=== PATIENT | male | born 1955 | race Caucasian/White ===

== ENCOUNTER 2025-10-31 06:56 | Day surgery (SDC) | payer MEDICARE, OTHER, SELFPAY ==
[2025-10-31 08:13] VITALS: BMI 26.5
== END 2025-10-31 10:45 | disposition home or self-care (01) ==
LOC: CATH 06:56
PROVIDERS: ATTENDING PHYSICIAN Internal Medicine Cardiovascular Disease; FAMILY PHYSICIAN Family Medicine; OTHER PHYSICIAN Internal Medicine Interventional Cardiology
DX: I08.3 Combined rheumatic disorders of mitral, aortic and tricuspid valves (principal); I08.8 Other rheumatic multiple valve diseases; E78.5 Hyperlipidemia, unspecified
CPT/HCPCS: 93312; 93320; 93325

== ENCOUNTER 2025-11-05 11:12 | Day surgery (SDC) | payer MEDICARE, OTHER, SELFPAY ==
[2025-11-05] VITALS (9 sets, daily range): BP systolic 108–136; BP diastolic 55–67; BMI 26.8
[2025-11-05 11:59] LABS: Hematocrit 42.2 % (39.0-52.0); Hemoglobin 14.4 g/dL (13.0-18.0); Mean Corp Hgb Conc. 34.1 g/dL (33.0-37.0); Mean Corpuscular Volume 96.6 fL (80.0-94.0); Platelet Count 168 10^3/uL (130-400); Red Cell Dist. Width 11.9 % (11.5-14.5)
[2025-11-05] MEDS: ASPIRIN 325 MG PO (12:07)
[2025-11-05] MEDS: NSS 254 ML IV (12:08)
[2025-11-05 12:26] LABS: Blood Urea Nitrogen 19 mg/dl (9-20); Calcium 9.2 mg/dl (8.4-10.2); Carbon Dioxide 27 mmol/L (22-30); Chloride 103 mmol/L (98-107); Estimated Creatinine Clearance 90 ml/min; Glucose 90 mg/dl (70-99); Potassium 4.0 mmol/L (3.5-5.1); Sodium 137 mmol/L (135-145); eGFR > 60.00
--- NOTE | 2025-11-05 13:12 | ITS.CL.CATH ---
Com[employer] Teaching [employer] - Catheterization
Cardiac Catheterization
Procedure Report:
LEFT HEART CATHETERIZATION
Date of Procedure: November 05, 2025
Procedures performed:
1: Coronary angiography
2: Left ventricular hemodynamic assessment
Primary Care Physician: LION Burton
Primary Advisory Services Associate: Myself
INDICATION: The patient is a 70-year-old man who presents for coronary angiography in preparation for mitral valve repair surgery.
ACCESS: The patient was prepped and draped in usual sterile fashion. A 5 Vietnamese sheath was placed in the right radial artery using the Seldinger over the wire technique.
HEMODYNAMIC FINDINGS (mmHg):
LV(s/d,EDP): 104/5, 12
Ao(s/d,m): 104/62, 84
ANGIOGRAPHIC FINDINGS:
Single-plane Left Ventriculography in [facility] Projection: Not done. Normal LVEF by recent noninvasive studies.
Coronary Angiography:
Dominance: Right
Left Main: Normal
Left Anterior Descending: The left anterior descending artery is a relatively large caliber vessel that gives rise to a medium high diagonal branch and larger second diagonal branch. All vessels are widely patent with no evidence of obstructive
disease and normal distal flow. Of note, the apical LAD has a somewhat unusual fusiform dilation of the artery just before the apex.
Left Circumflex: The left circumflex is a medium caliber nondominant system that gives rise to 1 large first obtuse marginal branch and terminates in 2 smaller distal vessels. All vessels are widely patent with no focal disease.
Ramus Intermedius: There is a large caliber ramus intermedius branch which is widely patent and appears angiographically normal.
Right Coronary: The right coronary artery is a medium caliber dominant vessel that gives rise to a relatively small posterior descending artery and posterior left ventricular branch system. These vessels are angiographically normal.
Fluoroscopy Time (min): 1.2
Radiation Dose (mGy): 270
DAP (Gy.cm2): 18
Closure device: None. A TR band was applied for hemostasis at the right wrist.
Complications: None.
ASSESSMENT:
1: Normal coronaries with no flow-limiting disease.
2: Normal left ventricular filling pressures.
CONCLUSIONS and RECOMMENDATIONS:
1: Proceed with planned mitral valve repair surgery as scheduled.
Neftali Hfuf M.D.
Copy to: LION Burton
[2025-11-05] MEDS: NSS 1000 IV (14:01)
== END 2025-11-05 15:58 | disposition home or self-care (01) ==
LOC: CATH 11:12
PROVIDERS: ATTENDING PHYSICIAN Internal Medicine Interventional Cardiology; FAMILY PHYSICIAN Family Medicine
DX: I34.0 Nonrheumatic mitral (valve) insufficiency (principal); I34.1 Nonrheumatic mitral (valve) prolapse; D15.1 Benign neoplasm of heart; Z79.899 Other long term (current) drug therapy
CPT/HCPCS: 80048; 85027; 93458; C1769; C1894; Q9967